=== PATIENT | female | born 1960 | race Caucasian/White ===

== ENCOUNTER 2016-09-11 16:10 | Emergency (ER) | payer OTHER ==
[2016-09-11] MEDS ORDERED: ONDANSETRON 4 MG VIAL ONE (16:57)
[2016-09-11] MEDS ORDERED: DILAUDID 1 MG/ML AMP ONE ×2 (16:57→18:46)
[2016-09-11] MEDS ORDERED: ORPHENADRINE 60 MG/2 ML AMP ONE (18:45)
[2016-09-11] MEDS ORDERED: KETOROLAC 30 MG/ML VIAL ONE (18:46)
== END 2016-09-11 21:11 ==
LOC: ER 16:10
DX: S16.1XXA Strain of muscle, fascia and tendon at neck level, initial encounter (principal); S00.03XA Contusion of scalp, initial encounter; S30.0XXA Contusion of lower back and pelvis, initial encounter; S70.12XA Contusion of left thigh, initial encounter; S39.012A Strain of muscle, fascia and tendon of lower back, initial encounter; W18.2XXA Fall in (into) shower or empty bathtub, initial encounter; Y93.E1 Activity, personal bathing and showering; Y92.199 Unspecified place in other specified residential institution as the place of occurrence of the external cause; M47.892 Other spondylosis, cervical region; M51.16 Intervertebral disc disorders with radiculopathy, lumbar region; Z96.89 Presence of other specified functional implants; E11.9 Type 2 diabetes mellitus without complications; I10 Essential (primary) hypertension; Z79.4 Long term (current) use of insulin
CPT/HCPCS: 70450; 72100; 72125; 72170; 72220; 73552; 96374; 96375; 96376; 99285; J1170; J1885; J2405